=== PATIENT | male | born 2000 | race Caucasian/White ===

== ENCOUNTER 2023-12-11 19:21 | Emergency (ER) | payer OTHER, SELFPAY ==
[2023-12-11 19:33] VITALS: BP 132/71; PULSE 85; RESP 16; TEMP 37.4; O2SAT 100; BMI 22.2
--- NOTE | 2023-12-11 19:44 | ED.GENADULT ---
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 Has been taking Tylenol, Dayquil/Nyquil for symptom control. Nursing staff collected strep and triple viral swab on arrival. Patient also asked if labs for an iron level in ferritin would be covered here. He had stated that he had been seen by another doctor at a different time and his iron level was high but ferritin level was low. He was told by that physician he needed to see a specialist imminently. He wondered if tonight those labs could be done and covered under this ED visit. I reviewed with him that these labs certainly are not emergent or applicable to his ER visit. We also reviewed that any testing we do is still charge, the components of the workup are still individually charged. He does understand, does not want me to order these, reviewed with him that it really was not necessary as part of his workup at this point either. Related Data Previous Rx's Medication Instructions Recorded amoxicillin 875 mg-potassium 1 tab PO BID 10 days #19 tabs 12/11/23 clavulanate 125 mg tablet Allergies Allergy/AdvReac Type Severity Reaction Status Date / Time cat dander Allergy Unknown Verified 12/11/23 19:37 Review of Systems Narrative: As per HPI. Exam Const: Vital Signs, click to edit/add: Vital Signs - 24 hr 12/11/23 19:33 Temperature 99.3 F Pulse Rate [Pulse Oximeter] 85 Respiratory Rate 16 Blood Pressure [Ri ght Upper Arm] 132/71 Pulse Oximetry 100 Oxygen Delivery Me thod Room Air Patient is alert, interactive, no apparent distress. Cheeks are flushed but no rash. Sclera clear, pupils are equal and round. Oropharynx shows posterior erythema but good airway, has 2 small aphthous ulcers on the left tonsillar side. Tongue normal, no tonsillar enlargement or exudates but they are red appearing. Neck is suppple Documenting provider has reviewed patient's vital signs: yes Course Course ED Course: Reviewed with patient that we will await the strep and viral triple swab. Offered him ibuprofen but he declines at this point. Reevaluation(s) Time of Reevaluation #1: 20:35 Reevaluation #1: Reviewed with patient that his triple swab and strep DNA are negative. I have recommended that we proceed with a CBC and Monospot. He would like to do so. He thinks he may have had mono but still would like to proceed with the testing. We did review that if he is sure he has had mono, this usually confers lifelong immunity and it is rare for patients to get it a 2nd time. He would like to proceed with both test and they were subsequently ordered. Time of Reevaluation #2: 21:17 Reevaluation #2: Reviewed with patient the elevated white count which would point to bacterial pharyngitis. Monospot is negative. Will give dose of Augmentin here orally, 875 mg. There currently is no Augmentin in [facility]. Vital Signs Vital signs: Initial Vital Signs Temperature 99.3 F 12/11/23 19:33 Temperature Source Oral 12/11/23 19:33 Pulse Rate 85 12/11/23 19:33 Respiratory Rate 16 12/11/23 19:33 Blood Pressure 132/71 12/11/23 19:33 Blood Pressure Mean 91 12/11/23 19:33 Blood Pressure Position Sitting 12/11/23 19:33 Pulse Oximetry 100 12/11/23 19:33 Oxygen Delivery Method Room Air 12/11/23 19:33 Vital Signs Temperature 99.3 F 12/11/23 19:33 Pulse Rate 85 12/11/23 19:33 Respiratory Rate 16 12/11/23 19:33 Blood Pressure 132/71 12/11/23 19:33 Pulse Oximetry 100 12/11/23 19:33 Oxygen Delivery Method Room Air 12/11/23 19:33 Temperature 99.3 F 12/11/23 19:33 Pulse Rate 85 12/11/23 19:33 Respiratory Rate 16 12/11/23 19:33 Blood Pressure 132/71 12/11/23 19:33 Pulse Oximetry 100 12/11/23 19:33 Oxygen Delivery Method Room Air 12/11/23 19:33 Medical Decision Making Lab Data Lab results reviewed: Yes I reviewed the patient's lab results Labs: Lab Results 12/11/23 12/11/23 Range/Units 19:30 20:40 WBC 14.84 H (4.50-11.00) K/uL RBC 4.76 (4.30-5.90) m/uL Hgb 14.7 (13.5-17.5) gm/dL Hct 44.1 (37.0-53.0) % MCV 93 (80-100) fL MCH 31 (26-34) pg MCHC 33 (32-36) gm/dL RDW Coeff of Jozef 11.8 (11.5-15.5) % Plt Count 208 (140-440) K/uL Neut % (Auto) 69.7 (42.0-72.0) % Lymph % (Auto) 14.8 L (20-44) % [place] % (Auto) 14.4 H (0.0-11.0) % Eos % (Auto) 0.1 (0.0-7.0) % Baso % (Auto) 0.3 (0.0-3.0) % Neut # (Auto) 10.30 H (1.7-7.0) K/uL Lymph # (Auto) 2.20 (0.90-2.90) K/uL [place] # (Auto) 2.10 H (0.00-0.90) K/UL Eos # (Auto) 0.00 (0.00-0.50) K/uL Baso # (Auto) 0.00 (0.00-0.30) K/uL Abs Immat Gran (auto) 0.10 (0.00-0.30) K/uL Imm/Tot Granulo (auto) 0.7 % Diff Slide Review Acceptable Review (Acceptable) SARS-CoV-2 (PCR) Negative SARS-CoV-2 (Negative) Monoscreen Negative (Negative) Influenza Type A (PCR) Negative PCR FLU A (Negative) Influenza Type B (PCR) Negative PCR FLU B (Negative) RSV (PCR) Negative PCR RSV (Negative) Group A Strep DNA NOT DETECTED (Not Detectd) Discharge Plan Discharge Clinical Impression: Acute bacterial pharyngitis Patient Disposition: Home, Self-Care Condition: Stable Instructions: Pharyngitis (ED) Additional Instructions: Continue with antibiotics, next dose due tomorrow morning, take as prescribed. Can still take uwcu-ydz-axxocxy medicines as you have been for symptom control. Would recommend adding in ibuprofen and following bottle directions for dosing on this. You can alternate the Tylenol and ibuprofen for fever and pain control. If you are not improving over the next week, feel you are worsening at any point, develop worsening sore throat or sore throat the becomes severe on just 1 side of the throat, do need to be re-evaluated. Activity Level: No Restrictions and Activity as Tolerated Discharge Diet: Regular Prescriptions: New amoxicillin-pot clavulanate 875-125 mg tablet 1 tab PO BID 10 Days Qty: 19 0RF Follow Up/Referrals: Provider,Not a Local [Primary Care Provider] - Stand Alone Forms: [employer] Info Instructions
[2023-12-11 20:13] LABS: Strep A DNA Probe* NOT DETECTED (Not Detectd)
[2023-12-11 20:26] LABS: PCR FLU A Negative PCR FLU A (Negative); PCR FLU B Negative PCR FLU B (Negative); PCR RSV Negative PCR RSV (Negative); SARS PCR* Negative SARS-CoV-2 (Negative)
[2023-12-11 20:48] LABS: Basophils Percent Auto 0.3 % (0.0-3.0); Eosinophils Percent Auto 0.1 % (0.0-7.0); Hematocrit 44.1 % (37.0-53.0); Hemoglobin* 14.7 gm/dL (13.5-17.5); Immature Granulocytes Pct Auto 0.7 %; Lymphocytes Percent Auto 14.8 % (20-44); Mean Corpuscular HGB Conc 33 gm/dL (32-36); Mean Corpuscular Hemoglobin 31 pg (26-34); Mean Corpuscular Volume 93 fL (80-100); Monocytes Percent Auto 14.4 % (0.0-11.0); Neutrophils Percent Auto 69.7 % (42.0-72.0); Platelet Count* 208 K/uL (140-440); RDW Coefficient of Variation % 11.8 % (11.5-15.5); Red Blood Count 4.76 m/uL (4.30-5.90); White Blood Count* 14.84 K/uL (4.50-11.00)
[2023-12-11 21:09] LABS: Slide Review Reflex Yes
[2023-12-11 21:10] LABS: Slide Review Acceptable Review (Acceptable)
[2023-12-11 21:11] LABS: Mono Screen* Negative (Negative)
== END 2023-12-11 21:26 | disposition home or self-care (01) ==
PROVIDERS: Emergency Provider Family Medicine
DX: J02.9 Acute pharyngitis, unspecified (principal)
CPT/HCPCS: 36415; 85025; 86308; 87631; 87651; 99283; 99284

== ENCOUNTER 2024-02-15 19:43 | Emergency (ER) | payer OTHER, SELFPAY ==
[2024-02-15 19:49] VITALS: BP 124/69; PULSE 86; RESP 18; TEMP 36.7; O2SAT 99; BMI 23.1
--- NOTE | 2024-02-15 20:05 | ED_ITS ---
HPI - General Adult General Chief complaint: Extremity Pain/Injury, Upper Stated complaint: injured thumb/genitals Time Seen by Provider: 02/15/24 19:45 Source: patient Mode of arrival: ambulatory Limitations: no limitations History of Present Illness HPI narrative: 23-year-old male coming in today with 2 concerns. 1. He is concerned about a thumb injury. 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 Pain is located at the base of the thumb and does not radiate. Denies other injury. 2. Patient is concerned about discomfort at the frenulum of the penis. He states that about a year ago he had discomfort there in the neck got better and now he feels slightly uncomfortable again. He denies any redness, penile discharge. He denies any swelling of the penis. Is wo ndering if there is anything that he should be doing differently. Related Data Home Medications Medication Instructions Recorded Confirmed No Known Home Medications 02/15/24 02/15/24 Allergies Allergy/AdvReac Type Severity Reaction Status Date / Time cat dander Allergy Unknown Verified 02/15/24 19:51 Review of Systems Status of ROS: Reports: 6 or more systems reviewed and unremarkable except as noted in History and below Exam Narrative: Exam Narrative: Well-nourished well-developed patient in no acute distress. Alert and oriented. Answers questions appropriately. Mood and affect are appropriate. Thoughts are goal oriented and rational. No tangential or magical thinking noted. Patient speaks in full sentences without needing to catch his breath. Does not appear ill or toxic. HEENT: Normocephalic atraumatic. Pupils are equally round reactive to light. Extraocular muscles are intact. Conjunctivae are moist without any icterus noted. Moist mucous membranes. Extremities: Patient has mild swelling at the MCP joint of the thumb. That is where he has tenderness. He has full range of motion with flexion extension, adduction and abduction. He has no tenderness to palpation of the flange ease. He has no pain at the wrist up or in the snuffbox. : Normal external male genitalia. He is uncircumcised. He has a show slightly shortened frenulum that appears to be mildly irritated. It is not swollen, there is no evidence of infection, there is no penile discharge. The glans appears normal. Shaft of the penis is normal. Const: Vital Signs, click to edit/add: Vital Signs - 24 hr 02/15/24 19:49 Temperature 98.0 F Pulse Rate [Right Pulse Oximeter] 86 Respiratory Rate 18 Blood Pressure [Le ft Upper Arm] 124/69 Pulse Oximetry 99 Oxygen Delivery Me thod Room Air Course Vital Signs Vital signs: Initial Vital Signs Temperature 98.0 F 02/15/24 19:49 Temperature Source Temporal Artery Scan 02/15/24 19:49 Pulse Rate 86 02/15/24 19:49 Respiratory Rate 18 02/15/24 19:49 Blood Pressure 124/69 02/15/24 19:49 Blood Pressure Mean 87 02/15/24 19:49 Blood Pressure Position Sitting 02/15/24 19:49 Pulse Oximetry 99 02/15/24 19:49 Oxygen Delivery Method Room Air 02/15/24 19:49 Vital Signs Temperature 98.0 F 02/15/24 19:49 Pulse Rate 86 02/15/24 19:49 Respiratory Rate 18 02/15/24 19:49 Blood Pressure 124/69 02/15/24 19:49 Pulse Oximetry 99 02/15/24 19:49 Oxygen Delivery Method Room Air 02/15/24 19:49 Temperature 98.0 F 02/15/24 19:49 Pulse Rate 86 02/15/24 19:49 Respiratory Rate 18 02/15/24 19:49 Blood Pressure 124/69 02/15/24 19:49 Pulse Oximetry 99 02/15/24 19:49 Oxygen Delivery Method Room Air 02/15/24 19:49 Medical Decision Making MDM Narrative Medical decision making narrative: 23-year-old male with injury to the thumb. We discussed symptomatic treatment reasons for follow-up. Minimally shortened and slightly irritated frenulum of the penis. We discussed avoiding friction, appropriate hygiene and avoiding stretching of the foreskin. We discussed follow-up with urology if this becomes a recurrent problem. Discharge Plan Discharge Clinical Impression: Short frenulum of penis, Injury of thumb, left Patient Disposition: Home, Self-Care Condition: Stable Additional Instructions: Rest the thumb. Do gentle [id number] exercises like stretching out the thumb and making a fist multiple times per day to keep the joint mobile. Okay to take ibuprofen as needed for discomfort. Recommend not causing more injury to the thumb until it is fully healed which can take a few weeks. As far as the irritated frenulum of the penis, recommend avoiding any friction such as sexual activity or masturbation. Would recommend putting a small dot of antibiotic ointment on the area once daily for a few days . If this becomes a recurring problem, I would recommend following up with a urologist. Prescriptions: No Action No Known Home Medications Follow Up/Referrals: Provider,Not a Local [Primary Care Provider] - Stand Alone Forms: [employer] Info Instructions
[2024-02-15 20:11] VITALS: BP 124/69; PULSE 86; RESP 18; TEMP 36.7; O2SAT 99
[2024-02-15 20:23] VITALS: BP 124/69; PULSE 86; RESP 18; TEMP 36.7
== END 2024-02-15 20:23 | disposition home or self-care (01) ==
LOC: ED 20:22
PROVIDERS: Emergency Provider Family Medicine
DX: S69.92XA Unspecified injury of left wrist, hand and finger(s), initial encounter (principal); N48.9 Disorder of penis, unspecified; Y93.71 Activity, boxing
CPT/HCPCS: 99283

== ENCOUNTER 2024-10-16 15:02 | Outpatient (CLI) | payer OTHER, SELFPAY | END 2024-10-16 15:03 | disposition home or self-care (01) | PROVIDERS: PCP Family Medicine; Visit Provider Family Medicine | DX: K52.9 Noninfective gastroenteritis and colitis, unspecified (principal); R53.83 Other fatigue | CPT/HCPCS: 80053; 82306; 84443; 86140 ==

== ENCOUNTER 2025-10-03 15:40 | Emergency (ER) | payer OTHER, SELFPAY ==
[2025-10-03 15:53] VITALS: BP 129/78; PULSE 86; RESP 18; TEMP 36.9; O2SAT 97
--- OUTSIDE RECORDS SUMMARY | 2025-10-03 15:53 | XMS_ITS | Data Portability ---
Author Organization [facility], [facility] [facility]* Address [address] [place] [address] Assessment Encounter Date Assessment Date Assessment LastModified by Organization Details LastModified Time 02/10/2025 02/10/2025 Detailed discussion on diagnoses. 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 Will send letter template via portal. Letter pending further review of these records. Follow-up as needed. kriss Not available 02/10/2025 13:46:39 04/14/2025 04/14/2025 Fatigue and elevated calcium discussed. Labs ordered to further evaluate. Will follow-up with results and recommendations . Ganglion cyst of R wrist: discussed benign nature of lesion. Due to associated pain, ortho referral to discuss drainage/remova l. Follow-up as needed. Travel consult. Travel precautions thru CDC.gov reviewed with pt. Hep A #1 vaccine today. Typhoid vaccine script given. Pt informed that vaccines should have been completed several weeks prior to departure for effectiveness. Pt voiced understanding. Encouraged bringing ibuprofen otc prn fevers/discomfo rt. Sunscreen encouraged, Insect repellent. Water and food safety/hygiene reviewed. Nurse visit in 6 months for Hep A #2. [email or web address] Not available 04/14/2025 13:43:27 Plan of Treatment Reminders Order Date Submit Date Provider Last Modified By Organization Details Last Modified Time Details Appointments None record ed. Lab CT + NG RNA, PCR, unspec ified specim en 2024 025 [employer] [facility], [address] [facility], [place], [address], 5 14:31:19 RPR (rapid plasma reagin ), serum 2024 025 [employer] [facility], [address] [place] [address], [address], 5 14:31:20 HIV 1+2 Ab + HIV1 p24 Ag, quanti tative immuno assay, serum 2024 025 [facility], [address] [place] [address], [phone], 5 14:31:14 hepati tis C virus Ab, serum 2024 025 TERRIL [facility], [address] [place] [address], [address], 5 14:31:18 HBsAg (hepat itis B surfac e Ag), serum 2024 025 [employer] [facility], [address] [place] [address], [address], 5 14:31:17 lipid panel, serum 2024 025 [facility], [address] [place] [address], [address], 5 14:31:12 urinal ysis comple te, reflex cultur e 2024 025 [employer] [facility], [address] [place] [address], [address], 5 14:31:15 CMP, serum or plasma 2024 025 [employer] [facility], [address] [place] [address], [address], 5 06:32:20 CBC w/ auto diff 2024 025 [employer] [facility], [address] [place], [address], 5 06:32:21 vitami n D, 25-hyd sherice, total, serum 2024 025 [employer] [facility], [address] [place] [address], [address], 5 06:32:23 iron + TIBC + ferrit in, serum 2024 025 KEIRY [facility], [address] [place], [address], 5 06:32:19 TSH + free T4, serum 2024 025 TERRIL [facility], [facility] [place], [address], 5 06:32:20 vitami n B12, serum 2024 025 TERRIL [facility], [facility] [place], [address], 5 06:32:22 Referral hemato logist referr al 2024 025 [facility], [address] [place] [address] , [address], [place], [address], 5 04:30:49 orthop edic surgeo n referr al 2024 025 [facility] [place], [address] [facility] [address], [address], [place], [address], 5 05:40:11 psychi atrist referr al 2023 024 KEIRY Not available 5 05:11:48 Procedures None record ed. Surgeries None record ed. Imaging None record ed. Medication Orders cyanoc obalam in (vit B-12) 1,000 mcg/mL inject ion soluti on 2024 025 [email or web address] je Not available 18:33:56 Patient TargetsNo targets recorded. Patient Instructions Encounter Date Encounter Id Patient Instructions Last Modified By Organization Details Last Modified Time 04/14/2025 [id number] traveler's diarrhea: care instructions [email or web address] Not available 04/14/2025 13:33:28 Reason for Referral Psychiatrist Referral for Un able to concentrate Referring Physician: Tanisha Novak, Family Medicine, Encounter Date: 07/11/2024 Orthopedic Surgeon Referral for Ganglion cyst of right wrist Referring Physician: Ruchi Reyna [facility], Encounter Date: 04/14/2025 Referring Physician: Tanisha howard, [facility], Encounter Date: 05/13/2025 Results Created Date Observation Date Name Description Value Unit Range Abnormal Flag Note LastModifiedBy Organization Detail LastModifiedTime 04/14/2004/15/2025 IRON, TIBC AND CONSTANCE TIN PANEL iron, total 185 mcg/d L 50-195 normal Not Available [facility] [address] [place], [address], 04/15/2025 06:32:18 04/14/20 25 04/15/2025 IRON, TIBC AND CONSTANCE TIN PANEL iron binding capacity 275 mcg/d L_(ca lc) 250-42 5 normal Not Available [facility] [address] [place], [address], 04/15/2025 06:32:18 04/14/20 25 04/15/2025 IRON, TIBC AND CONSTANCE TIN PANEL % saturation 67 %_(ca lc) 20-48 high Not Available [facility] [address] [place], [address], 04/15/2025 06:32:18 04/14/20 25 04/15/2025 IRON, TIBC AND CONSTANCE TIN PANEL ferritin 65 NG/mL 38-380 normal Not Available [facility] [address] [place], [address], 04/15/2025 06:32:18 04/14/20 25 04/15/2025 TSH+F REE T4 TSH 1.07 mIU/L 0.40-4 .50 normal Not Available [facility] - [address] [place], [address], 04/15/2025 06:32:20 04/14/20 25 04/15/2025 TSH+F REE T4 T4, free 1.4 NG/dL 0.8-1. 8 normal Not Available [facility] - [address] [place], [address], 04/15/2025 06:32:20 04/14/20 25 04/15/2025 COMPR EHENS DAMARIS METAB OLIC PANEL glucose 83 mg/dL 65-139 normal Non-f astin g refer ence inter ida This amend ed repor t is issue d due to a previ ously repor kareem incor rect refer ence range on the origi nal repor t. There is no zaldivar e in the henny ing of the resul t. => Indic ates zaldivar ed resul t(s) or infor matio n. PLEAS E DISRE AYSE PREVI OUSLY REPOR KAREEM INFOR MATIO N BELOW : (The infor matio n below was origi mady repor kareem on 04/15 at 6:29 AM) GLUCO SE 83 Fasti ng refer ence inter ida Not Available [facility] - [address] [place], [address], 04/15/2025 14:10:18 04/14/20 25 04/15/2025 COMPR EHENS DAMARIS METAB OLIC PANEL urea nitrogen (BUN) 17 mg/dL 7-25 normal Not Available [facility] - [address] [place], [address], 04/15/2025 14:10:18 04/14/20 25 04/15/2025 COMPR EHENS DAMARIS METAB OLIC PANEL creatinine 0.88 mg/dL 0.60-1 .24 normal Not Available [facility] [address] [place], [address], 04/15/2025 14:10:18 04/14/20 25 04/15/2025 COMPR EHENS DAMARIS METAB OLIC PANEL eGFR 124 mL/mi n/1.7 3m2 > or = 60 normal Not Available [address] [place], [address], 04/15/2025 14:10:18 04/14/20 25 04/15/2025 COMPR EHENS DAMARIS METAB OLIC PANEL BUN/creatini ne ratio SEE NOTE: (calc ) 6-22 Not Repor kareem: BUN and Creat inine are withi n refer ence range . Not Available [address] [place], [address], 04/15/2025 14:10:18 04/14/20 25 04/15/2025 COMPR EHENS DAMARIS METAB OLIC PANEL sodium 139 mmol/ L 135-14 6 normal Not Available [address] [place], [address], 04/15/2025 14:10:18 04/14/20 25 04/15/2025 COMPR EHENS DAMARIS METAB OLIC PANEL potassium 4.1 mmol/ L 3.5-5. 3 normal Not Available [address] [place], [address], 04/15/2025 14:10:18 04/14/20 25 04/15/2025 COMPR EHENS DAMARIS METAB OLIC PANEL chloride 103 mmol/ L 98-110 normal Not Available [address] [place], [address], 04/15/2025 14:10:18 04/14/20 25 04/15/2025 COMPR EHENS DAMARIS METAB OLIC PANEL carbon dioxide 30 mmol/ L 20-32 normal Not Available [address] [place], [address], 04/15/2025 14:10:18 04/14/20 25 04/15/2025 COMPR EHENS DAMARIS METAB OLIC PANEL calcium 9.8 mg/dL 8.6-10 .3 normal Not Available [address] [place], [address], 04/15/2025 14:10:18 04/14/20 25 04/15/2025 COMPR EHENS DAMARIS METAB OLIC PANEL protein, total 7.4 g/dL 6.1-8. 1 normal Not Available [address] [place], [address], 04/15/2025 14:10:18 04/14/20 25 04/15/2025 COMPR EHENS DAMARIS METAB OLIC PANEL albumin 4.9 g/dL 3.6-5. 1 normal Not Available [address] [place], [address], 04/15/2025 14:10:18 04/14/20 25 04/15/2025 COMPR EHENS DAMARIS METAB OLIC PANEL globulin 2.5 g/dL_ (calc ) 1.9-3. 7 normal Not Available [address] [place], [address], 04/15/2025 14:10:18 04/14/20 25 04/15/2025 COMPR EHENS DAMARIS METAB OLIC PANEL albumin/glob ulin ratio 2.0 (calc ) 1.0-2. 5 normal Not Available [address] [place], [address], 04/15/2025 14:10:18 04/14/20 25 04/15/2025 COMPR EHENS DAMARIS METAB OLIC PANEL bilirubin, total 0.7 mg/dL 0.2-1. 2 normal Not Available [address] [place], [address], 04/15/2025 14:10:18 04/14/20 25 04/15/2025 COMPR EHENS DAMARIS METAB OLIC PANEL alkaline phosphatase 58 U/L 36-130 normal Not Available [address] [place], [address], 04/15/2025 14:10:18 04/14/20 25 04/15/2025 COMPR EHENS DAMARIS METAB OLIC PANEL AST 21 U/L 10-40 normal Not Available [address] [place], [address], 04/15/2025 14:10:18 04/14/20 25 04/15/2025 COMPR EHENS DAMARIS METAB OLIC PANEL ALT 18 U/L 9-46 normal Not Available [address] [place], [address], 04/15/2025 14:10:18 04/14/20 25 04/15/2025 CBC (INCL UDES DIFF/ PLT) white blood cell count 6.3 thous and/u L 3.8-10 .8 normal Not Available [address] [place], [address], 04/15/2025 06:32:21 04/14/20 25 04/15/2025 CBC (INCL UDES DIFF/ PLT) red blood cell count 4.56 arnoldo on/uL 4.20-5 .80 normal Not Available [address] [place], [address], 04/15/2025 06:32:21 04/14/20 25 04/15/2025 CBC (INCL UDES DIFF/ PLT) hemoglobin 14.4 g/dL 13.2-1 7.1 normal Not Available [address] [place], [address], 04/15/2025 06:32:21 04/14/20 25 04/15/2025 CBC (INCL UDES DIFF/ PLT) hematocrit 43.7 % 38.5-5 0.0 normal Not Available [facility] [address] [place], [address], 04/15/2025 06:32:21 04/14/20 25 04/15/2025 CBC (INCL UDES DIFF/ PLT) MCV 95.8 fL 80.0-1 00.0 normal Not Available [facility] [address] [place], [address], 04/15/2025 06:32:21 04/14/20 25 04/15/2025 CBC (INCL UDES DIFF/ PLT) MCH 31.6 pg 27.0-3 3.0 normal Not Available [facility] [address] [place], [address], 04/15/2025 06:32:21 04/14/20 25 04/15/2025 CBC (INCL UDES DIFF/ PLT) MCHC 33.0 g/dL 32.0-3 6.0 normal For adult s, a sligh t decre ase in the calcu lated MCHC value (in the range of 30 to 32 g/dL) is most likel y not clini mau signi fican t; claudetteev er, it shoul d be inter prete d with cauti on in corre lat n with other red cell christopher eters and the patie nt's clini dax condi tion. Not Available [address] [place], [address], 04/15/2025 06:32:21 04/14/20 25 04/15/2025 CBC (INCL UDES DIFF/ PLT) RDW 11.8 % 11.0-1 5.0 normal Not Available [facility] [address] [place], [address], 04/15/2025 06:32:21 04/14/20 25 04/15/2025 CBC (INCL UDES DIFF/ PLT) platelet count 195 thous and/u L 140-40 0 normal Not Available [facility] [address] [place], [address], 04/15/2025 06:32:21 04/14/20 25 04/15/2025 CBC (INCL UDES DIFF/ PLT) MPV 11.5 fL 7.5-12 .5 normal Not Available [facility] - [address] [place], [address], 04/15/2025 06:32:21 04/14/20 25 04/15/2025 CBC (INCL UDES DIFF/ PLT) absolute neutrophils 3175 cells /uL 1500-7 800 normal Not Available [facility] - [address] [place], [address], 04/15/2025 06:32:21 04/14/20 25 04/15/2025 CBC (INCL UDES DIFF/ PLT) absolute lymphocytes 2356 cells /uL 850-39 00 normal Not Available [facility] - [address] [place], [address], 04/15/2025 06:32:21 04/14/20 25 04/15/2025 CBC (INCL UDES DIFF/ PLT) absolute monocytes 498 cells /uL 200-95 0 normal Not Available [facility] [address] [place], [address], 04/15/2025 06:32:21 04/14/20 25 04/15/2025 CBC (INCL UDES DIFF/ PLT) absolute eosinophils 208 cells /uL 15-500 normal Not Available [facility] - [address] [place], [address], 04/15/2025 06:32:21 04/14/20 25 04/15/2025 CBC (INCL UDES DIFF/ PLT) absolute basophils 63 cells /uL 0-200 normal Not Available [facility] [address] [place], [address], 04/15/2025 06:32:21 04/14/20 25 04/15/2025 CBC (INCL UDES DIFF/ PLT) neutrophils 50.4 % normal Not Available [facility] [address] [place], [address], 04/15/2025 06:32:21 04/14/20 25 04/15/2025 CBC (INCL UDES DIFF/ PLT) lymphocytes 37.4 % normal Not Available [facility] [address] [place], [address], 04/15/2025 06:32:21 04/14/20 25 04/15/2025 CBC (INCL UDES DIFF/ PLT) monocytes 7.9 % normal Not Available [facility] [address] [place], [address], 04/15/2025 06:32:21 04/14/20 25 04/15/2025 CBC (INCL UDES DIFF/ PLT) eosinophils 3.3 % normal Not Available [facility] [address] [place], [address], 04/15/2025 06:32:21 04/14/20 25 04/15/2025 CBC (INCL UDES DIFF/ PLT) basophils 1.0 % normal Not Available [facility] [address] [place], [address], 04/15/2025 06:32:21 04/14/20 25 04/15/2025 VITAM IN B12 vitamin B12 315 pg/mL 200-11 00 normal Pleas e Note: Altho ugh the refer ence range for vitam in B12 is 200-1 100 pg/mL , it has been repor kareem that betwe en 5 and 10% of patie nts with value s betwe en 200 and 400 pg/mL may exper ience neuro psych iatri c and hemat ologi c abnor malit ies due to occul t B12 defic iency ; less than 1% of patie nts with value s above 400 pg/mL will have sympt oms. Not Available [facility] [address] [place], [address], 04/15/2025 06:32:22 04/14/20 25 04/15/2025 VITAM IN D,25- OH,TO LUIS,I A vitamin D,25-oh,tota l,ia 41 NG/mL 30-100 normal Vitam in D Statu s 25-OH Vitam in D: Defic iency : <20 ng/mL Insuf ficie ncy: 20 - 29 ng/mL Optim al: > or = 30 ng/mL For 25-OH Vitam in D testi ng on patie nts on D2-anders pplem entat ion and patie nts for whom quant itati on of D2 and D3 fract ions is requi red, the [facility] e[facility](TM ) 25-OH VIT D, (D2,D 3), LC/MS /MS is recom denny d: order code 08511 (yo ents >2yrs ). See Note 1 Note 1 For addit ional infor jamal hernandez refer to http: //[facility] thad barbosa.Pool [place] gnost ics.c om/fa q/FAQ 199 (This link is being provi ded for infor hailey sarmiento/ educmikayla martin purpo ses only. ) Not Available [facility] [address] [place], [address], 04/15/2025 06:32:23 05/18/20 25 05/19/2025 LIPID PANEL , STAND GEOVANNA cholesterol, total 167 mg/dL <200 normal Not Available [facility] [address] [place], [address], 05/19/2025 14:31:12 05/18/20 25 05/19/2025 LIPID PANEL , STAND GEOVANNA HDL cholesterol 73 mg/dL > or = 40 normal Not Available [facility] [address] [place], [address], 05/19/2025 14:31:12 05/18/20 25 05/19/2025 LIPID PANEL , STAND GEOVANNA triglyceride s 76 mg/dL <150 normal Not Available [facility] [address] [place], [address], 05/19/2025 14:31:12 05/18/20 25 05/19/2025 LIPID PANEL , STAND GEOVANNA LDL-choleste rol 78 mg/dL _(dax c) normal Refer ence range : <100 Bharath able range <100 mg/dL for prima ry preve ntion ; <70 mg/dL for patie nts with CHD or diabe tic patie nts with > or = 2 CHD risk facto rs. LDL-C is now calcu lated using the Lila n-Hop kins calcu latmiguelito n, which is a valid ated novel metho d provi ding poli r accur acy than the Fried kathleen equat ion in the estim ation of LDL-C . Lila barbosa SS et al. LESLIE. 2013; 310(1 9): 2061- 206 (http ://ed ucati on.Qu [employer]. com/f aq/FA Q164) Not Available [facility] [place], [address], 05/19/2025 14:31:12 05/18/20 25 05/19/2025 LIPID PANEL , STAND GEOVANNA chol/HDLC ratio 2.3 (calc ) <5.0 normal Not Available [facility] [place] [place], [address], 05/19/2025 14:31:12 05/18/20 25 05/19/2025 LIPID PANEL , STAND GEOVANNA non HDL cholesterol 94 mg/dL _(dax c) <130 normal For patie nts with diabe sandeep plus 1 major ASCVD risk facto r, treat ing to a non-H DL-C goal of <100 mg/dL (LDL- C of <70 mg/dL ) is consi dered a thera peuti c optio n. Not Available [facility], [address], 05/19/2025 14:31:12 05/18/20 25 05/19/2025 HIV 1/2 ANTIG EN/AN TIBOD Y,FOU RTH GENER ATION W/RFL HIV final interpretati on HIV Negat damaris HIV-1 antig en and HIV-1 /HIV- 2 antib odies were not detec kareem. There is no labor atory evide nce of HIV infec tion. Not Available [facility] - [address] [place], [address], 05/19/2025 14:31:14 05/18/20 25 05/19/2025 HIV 1/2 ANTIG EN/AN TIBOD Y,FOU RTH GENER ATION W/RFL HIV Ag/Ab, 4TH gen NON-RE ACTIVE non-re active normal Not Available [facility] - [address] [place], [address], 05/19/2025 14:31:14 05/18/20 25 05/19/2025 URINA LYSIS , COMPL ETE W/REF SPENCER TO CULTU RE color YELLOW yellow normal Not Available [facility] - [address] [place], [address], 05/19/2025 14:31:15 05/18/20 25 05/19/2025 URINA LYSIS , COMPL ETE W/REF SPENCER TO CULTU RE appearance CLEAR clear normal Not Available [facility] - [address] [place], [address], 05/19/2025 14:31:15 05/18/20 25 05/19/2025 URINA LYSIS , COMPL ETE W/REF SPENCER TO CULTU RE specific gravity 1.016 1.001- 1.035 normal Not Available [facility] [address] [place], [address], 05/19/2025 14:31:15 05/18/20 25 05/19/2025 URINA LYSIS , COMPL ETE W/REF SPENCER TO CULTU RE pH 6.0 5.0-8. 0 normal Not Available [facility] [address] [place], [address], 05/19/2025 14:31:15 05/18/20 25 05/19/2025 URINA LYSIS , COMPL ETE W/REF SPENCER TO CULTU RE glucose NEGATI VE negati ve normal Not Available [facility] [address] [place], [address], 05/19/2025 14:31:15 05/18/20 25 05/19/2025 URINA LYSIS , COMPL ETE W/REF SPENCER TO CULTU RE bilirubin NEGATI VE negati ve normal Not Available [facility] - [address] [place], [address], 05/19/2025 14:31:15 05/18/20 25 05/19/2025 URINA LYSIS , COMPL ETE W/REF SPENCER TO CULTU RE ketones NEGATI VE negati ve normal Not Available [facility] - [address] [place], [address], 05/19/2025 14:31:15 05/18/20 25 05/19/2025 URINA LYSIS , COMPL ETE W/REF SPENCER TO CULTU RE occult blood NEGATI VE negati ve normal Not Available [facility] - [address] [place], [address], 05/19/2025 14:31:15 05/18/20 25 05/19/2025 URINA LYSIS , COMPL ETE W/REF SPENCER TO CULTU RE protein NEGATI VE negati ve normal Not Available [facility] - [address] [place], [address], 05/19/2025 14:31:15 05/18/20 25 05/19/2025 URINA LYSIS , COMPL ETE W/REF SPENCER TO CULTU RE nitrite NEGATI VE negati ve normal Not Available [facility] - [address] [place], [address], 05/19/2025 14:31:15 05/18/20 25 05/19/2025 URINA LYSIS , COMPL ETE W/REF SPENCER TO CULTU RE leukocyte esterase NEGATI VE negati ve normal Not Available [facility] - [address] [place], [address], 05/19/2025 14:31:15 05/18/20 25 05/19/2025 URINA LYSIS , COMPL ETE W/REF SPENCER TO CULTU RE WBC NONE SEEN /hpf < or = 5 normal Not Available [facility] [address] [place], [address], 05/19/2025 14:31:15 05/18/20 25 05/19/2025 URINA LYSIS , COMPL ETE W/REF SPENCER TO CULTU RE RBC NONE SEEN /hpf < or = 2 normal Not Available [address] [place], [address], 05/19/2025 14:31:15 05/18/20 25 05/19/2025 URINA LYSIS , COMPL ETE W/REF SPENCER TO CULTU RE squamous epithelial cells NONE SEEN /hpf < or = 5 normal Not Available [address] [place], [address], 05/19/2025 14:31:15 05/18/20 25 05/19/2025 URINA LYSIS , COMPL ETE W/REF SPENCER TO CULTU RE bacteria NONE SEEN /hpf none seen normal Not Available [address] [place], [address], 05/19/2025 14:31:15 05/18/20 25 05/19/2025 URINA LYSIS , COMPL ETE W/REF SPENCER TO CULTU RE hyaline cast NONE SEEN /lpf none seen normal Not Available [address] [place], [address], 05/19/2025 14:31:15 05/18/20 25 05/19/2025 URINA LYSIS , COMPL ETE W/REF SPENCER TO CULTU RE note This urine was wilfrid zed for the prese nce of WBC, RBC, bacte joana, casts , and other forme d eleme nts. Only those eleme nts seen were repor kareem. Not Available [address] [place], [address], 05/19/2025 14:31:15 05/18/20 25 05/19/2025 REFLE XIVE URINE CULTU RE reflexive urine culture NO CULTU RE INDIC ATED Not Available [facility] [address] [place], [address], 05/19/2025 14:31:16 05/18/2005/19/2025 HEPAT ITIS B SURFA CE ANTIG EN W/REF L CONFI RM hepatitis B surface antigen NON-RE ACTIVE non-re active normal For addit ional infor matio n, jamal e refer to http: //[facility] catmiguelito n.que stdia gnost ics.c om/fa q/FAQ 202 (This link is being provi ded for infor matio nal/ educa libby l purpo ses only. ) Not Available [facility] - [address] [place], [address], 05/19/2025 14:31:17 05/18/20 25 05/19/2025 HEPAT ITIS C AB W/REF L TO HCV RNA, QN, PCR hepatitis C antibody NON-RE ACTIVE non-re active normal HCV antib dread was non-r eacti ve. There is no labor atory evide nce of HCV infec tion. In most cases , no furth er actio n is requi red. Howev er, if recen t HCV expos ure is suspe cted, a test for HCV RNA (test code 53226 ) is sugge sted. For addit ional infor matio n jamal e refer to http: //[facility] thad n.pool stdia gnost ics.c om/fa q/FAQ 22v1 (This link is being provi ded for infor matio nal/ educa libby l purpo ses only. ) Not Available [facility] - [address] [place], [address], 05/19/2025 14:31:18 05/18/2005/19/2025 CHLAM YDIA/ N. GONOR RHOEA E RNA, TMA, UROGE NITAL chlamydia trachomatis RNA, tma, urogenital NOT DETECT ED not detect ed normal Not Available [facility] - [address] [place], [address], 05/19/2025 14:31:19 05/18/20 25 05/19/2025 CHLAM YDIA/ N. GONOR RHOEA E RNA, TMA, UROGE NITAL neisseria gonorrhoeae RNA, tma, urogenital NOT DETECT ED not detect ed normal Not Available [facility] [address] [place], [address], 05/19/2025 14:31:19 05/18/20 25 05/19/2025 CHLAM YDIA/ N. GONOR RHOEA E RNA, TMA, UROGE NITAL comment The wilfrid tical perfo rmanc e bozena cteri stics of this assay , when used to test SureP ath(T M) speci mens have been deter mined by [employer] o[employer] s. The modif icati ons have not been clear ed or appro rosario by the FDA. This assay has been valid ated pursu ant to the CLIA regul ation s and is used for clini dax purpo ses. For addit ional infor jamal hernandez e refer to https ://ed ucati on.qu estdi [employer]. com/f aq/FA Q154 (This link is being provi ded for infor hailey barbosa/ educmikayla souza l purpo ses only. ) Not Available [facility] [address] [place], [id number], 05/19/2025 14:31:19 05/18/20 25 05/19/2025 RPR (DX) W/REF L TITER AND T. PALLI DUM AB, IA RPR (DX) w/refl titer and confirmatory testing NON-RE ACTIVE non-re active normal No labor atory evide nce of syphi lis. If recen t expos ure is suspe cted, submi t a new sampl e in 2-4 weeks . Not Available [facility] [address] [place], [id number], 05/19/2025 14:31:20 Result Notes None recorded. Medical Equipment None Reported. Allergies Allergen ID Allergen Name Allergen Category Reaction Reaction Severity Criticality Documentation Date Start Date Code Code System Note Provider Name and Address Organization Details Recorded Time [id number] latex environme nt,medica tion Not available Not available Not available 04/14/2025 05047 91 RxNorm Echo mena, [facility] 13:08:26 Medications Name Sig Start Date Stop Date Status Note LastModified by Organization Details LastModified Time methylpheni date ER 54 mg tablet,exte nded release 24 hr TAKE 1 TABLET BY MOUTH EVERY DAY active Not Available Not Available No t Available cyanocobala min (vit B-12) 1,000 mcg/mL injection solution Inject 1 mL every month by subcutane ous route. 2024 active Not Available Not Available Not Avai lable amoxicillin 875 mg-potassiu m clavulanate 125 mg tablet TAKE 1 TABLET BY MOUTH TWICE DAILY FOR 10 DAYS 02/10 completed Not Available Not Available Not Available azithromyci n 500 mg tablet TAKE 1 TABLET BY MOUTH EVERY DAY FOR 3 DAYS 02/10 completed Not Available Not Available Not Available Vitals Date Recorded Body height Body mass index (BMI) Body weight Body temperature Heart rate Oxygen saturation Systolic And Diastolic Provider Name and Address Organization Details Last Updated DateTime 187.96 cm 22.7 kg/m2 73868.8 5 g 98 [degF] 85 /min 99 % 119/70 mm[Hg] Etta Cherry [facility] 13:23:15 Date Recorded Body mass index (BMI) Provider Name and Address Organization Details Last Updated DateTime 04/14/2025 22.3 kg/m2 RITA Valerio [address], [place], [address], [facility] 04/14/2025 13:47:21 Date Recorded Body height Body weight Heart rate Oxygen saturation Body temperature Systolic And Diastolic Provider Name and Address Organization Details Last Updated DateTime 5 187.96 cm 46877.3 5 g 78 /min 99 % 98 [degF] 110/74 mm[Hg] Echo Ust i [facility] 13:05:24 Date Recorded Body height Body mass index (BMI) Body weight Body temperature Pain severity - 0-10 verbal numeric rating [Score] - Reported Oxygen saturation Heart rate Systolic And Diastolic Provider Name and Address Organization Details Last Updated DateTime 5 187.96 cm 22.6 kg/m2 87767.6 6 g 98.4 [degF] 0 97 % 79 /min 112/78 mm[Hg] Eva Hairston [facility] 5 17:34:46 Date Recorded Body height Provider Name an d Address Organization Details Last Updated DateTime 05/18/2025 187.96 cm Chema Becker [facility] 05/18/2025 18:08:18 Date Recorded Body height Body mass index (BMI) Body weight Heart rate Oxygen saturation Body temperature Systolic And Diastolic Provider Name and Address Organization Details Last Updated DateTime 4 187.96 cm 23.5 kg/m2 86173.4 g 82 /min 98 % 98.4 [degF] 108/70 mm[Hg] Innadalilakrishna Malinjesse [facility] 4 10:53:43 Social History Question Answer Notes LastModified by Organizat iClinical Details LastModified Time Tobacco Sm[facility] Status [facility] 07/11/2024 10:54:39 What Was The Date Of Your Most Recent Tobacco Screening? 05/13/2025 erudiak Information not available 05/13/2025 Sex: Male Functional Status Question Answer Note LastModified by Organizat iClinical Details LastModified Time Do you use any illicit or recreational drugs? No Information not available 06/29/2023 What is your level of alcohol consumption? Occasional Information not available 06/29/2023 What is your exercise level? Moderate Information not available 06/29/2023 Mental Status None recorded. Family History Relationship Description Onset Age of this Age Resolved Age Notes LastModified by Organization Details LastModified Time Father Alcoholism erudiak Not availabl e 05/13/2025 17:43:40 Father Nicotine dependence erudiak Not available 05/13 17:43:51 Father Anxiety erudiak Not available 0 05/13/2025 17:43:58 Medical History No medical history recorded. Immunizations Vaccine Type Date Status Note Provider Nam e and Address Organization Details Recorded Time Hep A, adult 5 completed Echo Pasupuleti null, [facility] 04/14/2025 13:44:50 Influenza, split virus, quadrivalent, preservative 2 completed Echo Pasupuleti null, [facility] 06/27/2023 15:52:00 Hib, unspecified formulation 2 completed Echo Pasupuleti null, [facility] 06/27/2023 15:52:00 Hib, unspecified formulation 3 completed Echo Pasupuleti null, [facility] 06/27/2023 15:52:00 Hib, unspecified formulation 2 completed Echo Pasupuleti null, [facility] 06/27/2023 15:52:00 Hib, unspecified formulation 2 completed Echo Pasupuleti null, [facility] 06/27/2023 15:52:00 meningococcal B, recombinant 9 completed Echo Pasupuleti null, [facility] 06/27/2023 15:52:00 meningococcal B, recombinant 2 completed Echo Pasupuleti null, [facility] 06/27/2023 15:52:00 HPV9 9 completed Echo Pasupuleti null, [facility] 06/27/2023 15:52:00 HPV9 2 completed Echo Pasupuleti null, [facility] 06/27/2023 15:52:00 Influenza, MDCK, quadrivalent, preservative 8 completed Echo Pasupuleti null, [facility] 06/27/2023 15:52:00 MMR 7 completed Echo Pasupuleti null, [facility] 06/27/2023 15:52:00 MMR 3 completed Echo Pasupuleti null, [facility] 06/27/2023 15:52:00 COVID-19, mRNA, LNP-S, PF, 30 mcg/0.3 mL dose 1 completed Echo Pasupuleti null, [facility] 06/27/2023 15:52:00 COVID-19, mRNA, LNP-S, PF, 30 mcg/0.3 mL dose 1 completed Echo Pasupuleti null, [facility] 06/27/2023 15:52:01 influenza, unspecified formulation 8 completed Echo Pasupuleti null, [facility] 06/27/2023 15:52:01 influenza, unspecified formulation 7 completed Echo Pasupuleti null, [facility] 06/27/2023 15:52:01 Tdap 4 completed Echo Pasupuleti null, [facility] 06/27/2023 15:52:01 varicella 3 completed Echo Pasupuleti null, [facility] 06/27/2023 15:52:01 varicella 7 completed Echo Pasupuleti null, [facility] 06/27/2023 15:52:01 DTP 4 completed Echo Pasupuleti null, [facility] 06/27/2023 15:52:01 DTP 7 completed Echo Pasupuleti null, [facility] 06/27/2023 15:52:01 DTP 2 completed Echo Pasupuleti null, [facility] 06/27/2023 15:52:01 DTP 2 completed Echo Pasupuleti null, [facility] 06/27/2023 15:52:01 DTP 2 completed Echo Pasupuleti null, [facility] 06/27/2023 15:52:01 Hep B, unspecified formulation 4 completed Echo Pasupuleti null, [facility] 06/27/2023 15:52:01 Hep B, unspecified formulation 2 completed Echo Pasupuleti null, [facility] 06/27/2023 15:52:01 Hep B, unspecified formulation 2 completed Echo Pasupuleti null, [facility] 06/27/2023 15:52:01 pneumococcal, unspecified formulation 2 completed Echo Pasupuleti null, [facility] 06/27/2023 15:52:01 pneumococcal, unspecified formulation 2 completed Echo Pasupuleti null, [facility] 06/27/2023 15:52:01 pneumococcal, unspecified formulation 2 completed Echo Pasupuleti null, [facility] 06/27/2023 15:52:01 polio, unspecified formulation 4 completed Echo Pasupuleti null, [facility] 06/27/2023 15:52:01 polio, unspecified formulation 6 completed Echo Pasupuleti null, [facility] 06/27/2023 15:52:01 polio, unspecified formulation 8 completed Ceho Pasupuleti null, [facility] 06/27/2023 15:52:01 polio, unspecified formulation 2 completed Echo Pasupuleti null, [facility] 06/27/2023 15:52:01 Influenza, split virus, trivalent, preservative 4 completed Echo Pasupuleti null, [facility] 06/27/2023 15:52:01 Influenza, split virus, trivalent, PF 7 completed Echo Pasupuleti null, [facility] 06/27/2023 15:52:01 meningococcal MCV4P 9 completed Echo Pasupuleti null, [facility] 06/27/2023 15:52:01 Influenza, split virus, quadrivalent, PF 6 completed Echo Pasupuleti null, [facility] 06/27/2023 15:52:01 Influenza, split virus, quadrivalent, PF 1 completed Echo Pasupuleti null, [facility] 06/27/2023 15:52:01 Tdap 4 completed HYACINTH Contreras [address], [place], [address], [facility] 05/13/2025 18:35:39 Influenza, split virus, trivalent, PF 4 completed HYACINTH Contreras [address], [place], [address], [facility] 05/13/2025 18:35:39 Past Encounters Encounter ID Performer Location Encounter Start Date Encounter Closed Date Diagnosis/Indication Diagnosis SNOMED-CT Code Diagnosis ICD10 Code Diagnosis IMO Codes Diagnosis Note [id number] Joel Irby MD [facility] [address] [place] [address],[facility] [address] [place] [address] 06/29/2023 11:48:14 06/29/2023 12:39:38 Vitamin D deficiency 55618039 E55.9 Per patient report, pt has hx of vitamin D deficiency and is requesting a vitamin D level be performed today Fatigue 18288633 R53.83 -pt feeling fatigued and requesting iron panel be drawn-will also draw TSH and CBC (r/o anemia) Adult [facility] th examination 551040853 Z00.00 Continue with healthy diet and exercise at least 150 minutes a week. Venereal d isease screening 410471116 Z11.3 -per patient request [id number] Joel Irby MD [facility] [address] [place] [address],[address] [place] [address] 07/09/2023 15:32:51 07/09/2023 16:01:04 Test result to patient personally 204006258 Z71.2 All results have been discussed wt patient Serum iron above reference range 248205157 R79.0 -pt to see hematology regarding iron panel results Hypercalcemia 50838061 E 83.52 -will test PTH and repeat calcium level [id number] Joel Irby MD [facility] [address] [place] [address],[address] [place] [address] 07/11/2024 10:37:08 07/11/2024 11:20:41 Unable to concentrate 07886253 R41.840 Patient last filled stimulant in 2021 upon review of the AUTOMOTIVE SERVICE TECHNICIAN. Pt reports that this was only because [place] the year. He does not have any documentat ion of a prior ADHD diagnosis from psychiatry . Pt was made aware of our policy regarding stimulants and ADHD. Pt needs to either complete a brain scan which shows ADHD or undergo neuro-psyc h testing with psychiatry .Pt reports that he is going to college in 4 days and does not have time to complete either. I have offered a referral to psychiatry so patient can get neuropsych testing completed. Pt is in agreement with this plan and verbalized understand ing. Referral to psychiatry given today for further evaluation and treatment. Active or passive immunization 596544347 Z23 Due for Tdap as wellAdmini stered flu shotTolera kareem well. 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 82538452 Attention deficit hyperactivity disorder 094204586 F90.9 530111678 [id number] Alie Hua MD [facility] [address] [place] [address],[address] [place] [address] 04/14/2025 12:52:24 04/14/2025 17:14:15 Fatigue 50077496 R53.83 73255028 Hypercalcemia 14064586 E 83.52 86126 Ganglion c yst of right wrist 3966704338 08268 M67.333 0395051 Active immunization 3387 9002 Z23 34395558 Counseling 020865261 Z71 .84 [id number] Joel Irby MD [facility] [address] [place] [address],[address] [place] [address] 05/13/2025 17:26:49 05/13/2025 19:06:08 Adult health examination 370017398 Z00.00 253391 -Check labs today-Disc ussed diet and exercise in detail-Hea lthy diet, increase lean protein (such as chicken, fish and turkey)-In crease fruits and vegetables , whole grains and legumes-Ex ercise at least 150 minutes a week, which can be broken into 30 minutes five days a week-Reduc e amount of processed foods, red meat and alcohol in diet-Yearl y eye exams-Q6 months dental exams-slee p at least 8 hours nightly-UT D on vaccinatio ns Venereal d isease screening 371646236 Z11.3 9877714 - Asymptomat ic. Finding of abnormal level of heavy metals in blood 425556251 R79.0 [id number] - Hematologi st referral given per patient request. [id number] Joel Irby MD PMG_VFM_F [facility] Office* [address] [place] [address] 05/18/2025 18:03:10 05/18/2025 18:13:51 Cobalamin deficiency 058913005 E53.8 61594 Health Concerns Section Related Observation LastModified by Organization Detai ls LastModified Time None Recorded Concern Status LastModified by Organization Details LastModified Time None Recorded Advance Directives Directive None Recorded Payers Insurance Date Sequence Insurance Name Policy Number Policy Ahmadi Covered Member ID Ahmadi Member ID Guarantor Name 05/22/2025 1 [facility] [id number] [facility] 06/29/[address] [facility] [id number] [facility] Notes Date Note Type Note Provider Name and Address Organization Details Recorded Time 07/11/2024 text/html 24 y/o M here for vaccines and ADHD medication refill. Pt has taken methylphenidate 54 mg ER in the past and looking for a refill today. He does not have any documentation with him today regarding prior ADHD diagnosis. Pt c/o inability to concentrate.He is also looking for a flu shot. No other concerns. Tanisha Novak, SALMON TROLL FISHER [address], [place], [address], [facility] - [employer] 07/11/2024 14:21:10 02/10/2025 text/html ROS as noted in the HPI 24 yo M presents today with mother to request doctor's note.Mother and patient reports PMH of ADHD and visual snow syndrome.States that he was dx with ADHD as a child and visual snow syndrome more recently after he was experiencing vision issues, was seen by manager park near his college, and then referred to [facility] due to suspicion that vision issues may be due to head trauma from boxing. Mother states that series of tests were done at [facility] to properly dx visual snow syndrome.Due to stress of the diagnosis process and ADHD as well as stress related to this, pt missed a deadline with his [employer] tuition application and requires a letter stating that he has these diagnoses.Pt is also open to getting established with psychological operations officer to better manage stress.No other issues or concerns. [address], [place], [address], [facility] [employer] [facility] 02/10/2025 13:47:46 04/14/2025 text/html ROS as noted in the HPI 25 yo M presents today for travel consult, f/u fatigue, and cc of mass on R wrist. Patient presents for follow-up travel consult.Traveling to [facility] for 4 weeks, from 04/15/2025 through the end of April 2025.Requests vaccines to be updated as indicated.Presents for Hepatitis A vaccine and any vaccines that are recommended. Patient also presents for fatigue.Has hx of vitamin B12 deficiency, vitamin D deficiency, elevated calcium, and abnormal iron panel results.Has ongoing visual snow syndrome.Presents for repeat labs. Patient presents for bump located on lateral aspect of inner right wrist x4 years.Reports intermittent pain.States bump has not changed in size since onset.Has not had imaging done.Presents for further evaluation.No other issues or concerns. [address], [place], [address], [facility] [employer] [facility] 04/14/2025 13:50:41 05/13/2025 text/html Annual Wellness Visit - MaleReported by PatientWellness HistoryFor wellness history, patient reportsdoes not use sunscreen/protection but reportsfeels well with no/few symptoms,normal mood,healthy diet,exercises on a regular basis,good physical condition,healthy weight,does not use tobacco products,no alcohol/does not consume alcohol in excess,normal sleep, anduses seatbelts. For sexual/gu, patient reportsno known exposure to std; safe sex practicesandno std lesions/symptoms. 25y/o M here for annual examination. He is requesting to review labs from 04/14/2025.CMP: WNLVitamin D: 41Vitamin B12: 315CBC: WNL% Saturation: 67TSH: WNL Denies chest pain, shortness of breath, abdominal pain, lower extremity swelling, fever, or further symptoms or concerns. Tanisha Novak, HYACINTH [address], [place], [address], [facility] 05/13/2025 18:36:47
--- OUTSIDE RECORDS SUMMARY | 2025-10-03 15:53 | XMS_ITS | Clinical Summary ---
Author Organization [facility] Address [address] [place] [address] Care Team Providers Care Political Consultant Name Role Phone None Reported, Pcp Primary Care Provider Unavail able Source Comments Patient records contain information from all sites at [facility]. For routine questions regarding patient records, call [phone] during business hours, M-F 8:00 AM - 5:00 PM Central Time. Record requests for emergency care only can be directed to [phone] at any time.[facility] Allergies No known active allergies Medications * This document contains information received from the source organization and may not represent a complete record from that organization. lisdexamfetamine (Vyvanse) 30 mg capsule Take 30 mg by mouth as needed (for ADHD to study.). 09/06/2024 Active methylphenidate HCl (Ritalin) 10 mg tablet Take 10 mg by mouth as needed (for ADHD to study.). 08/07/2024 Active Social History Tobacco Use Types Packs/Day Years Used Date Smoking Tobacco: Never Passive Smoke Exposure: Past Smokeless Tobacco: Never Tobacco Cessation:Counseling Given: Not Answered Comments:Hardly Ever Passive Exposure Comments:Grandparents [facility] Utilities Answer Date Recorded In the past 12 months has [employer], gas, oil, or water company threatened to shut off services in your home? No 09/07/2024 Hunger Vital Sign Answer Date Recorded Within the past 12 months, y ou worried that your food would run out before you got the money to buy more. Never true 09/07/20 24 Within the past 12 months, t he food you bought just didn't last and you didn't have money to get more. Never true 09/07/2024 PRAPARE - Transportation Answer Date Re corded In the past 12 months, has l ack of transportation kept you from medical appointments or from getting medications? Yes 08/13 In the past 12 months, has l ack of transportation kept you from meetings, work, or from getting things needed for daily living? No 09/07/2024 Depression Answer Date Recor ded PHQ-9 Total Score (max 27) 4 12/03 Housing Stability Answer Date Recorded What is your living situation today? I have a [facility] place to live 09/07/2024 Sex and Gender Information Value Date Recorded Sex Assigned at Male 09/07/2024 12:24 AM CDT Legal Sex Male 9:23 AM CDT Gender Identity Male 09/07/2024 12:24 AM CDT Sexual Orientation Straight 09/07/2024 12 :24 AM CDT Last Filed Vital Signs Vital Sign Reading Time Taken Comments Blood Pressure 135/77 12/03/2024 2:36 PM FIGURE CLERK Pulse 76 12/03/2024 2:36 PM FIGURE CLERK Temperature - - Respiratory Rate - - Oxygen Saturation - - Inhaled Oxygen Concentration - - Weight 80.1 kg (176 lb 9.4 oz) 12/03/2024 2:36 P M FIGURE CLERK Height 187.4 cm (6' 1.78) 12/03/2024 2:36 PM CS T Body Mass Index 22.81 12/03/2024 2:36 PM FIGURE CLERK Plan of Treatment Health Maintenance Due Date Last Done Comments HIV Screening 2002 Hepatitis C Screening 2002 HPV Vaccines (3 - Male 3-dose series) 02/01/2023 11/09/2022, 02/11/2019 DTaP,Tdap,and Td Vaccines (7 - Td or Tdap) 05/01/2024 05/01/2014, 05/14/2007, 11/17/2003, Additional history exists COVID-19 Vaccine ( - season) 2025 08/14/2024, 03/27/2021, 03/05/2021 Influenza Vaccine (#1) 2025 10/10/2022 Pneumococcal vaccine (0-49 years) Aged Out 2002, 2002, 2002 No longer eligible based on patient's age to complete this topic Hepatitis B Vaccines Completed 11/17/2003, 2002, 2002 IPV Vaccines Completed 06/19/2008, 04/2006, 11/17/2003, Additional history exists Depression Screening (Annual PHQ-2) Completed 12/03/2024 Insurance [facility] Care Teams Political Consultant Relationship Specialty Start Date End Date None Reported, Pcp PCP - General 09/19/24
--- NOTE | 2025-10-03 16:15 | ED_ITS ---
HPI - General Adult General Chief complaint: Cough Stated complaint: Cough Fever, Ear Pain Time Seen by Provider: 10/03/25 15:42 History of Present Illness HPI narrative: Patient is a pleasant 25 white male from [facility] attending college here in [place] who has had productive cough for the last 4-5 days. He has had history of bronchitis in the past, no other chronic lung disease. He has got some chronic diarrhea issues as well as ADHD for which she takes as needed medicine methylphenidate but he is not on that now. He plans on traveling to [place] in the next few days and is concerned that he may be sick there and need treatment. He has had a productive cough of some greenish material. He has not been short of breath, no rigors no chills. No exposure to COVID he apparently had a negative COVID test recently, and his flu test was negative as well. Related Data Previous Rx's ?Medication ?Instructions ?Recorded lisdexamfetamine 30 mg capsule 30 mg PO QDAY #30 caps 10/16/24 (Vyvanse) methylphenidate HCl 10 mg tablet 15 mg (1.5 x 10 mg) P O QAM #45 tabs 10/16/24 Allergies Allergy/AdvReac Type Severity Reaction Status Date / Time cat dander Allergy Unknown Verified 10/03/25 15:56 Review of Systems Status of ROS: Reports: 6 or more systems reviewed and unremarkable except as noted in History and below [facility] Medical History Concussion ?S06.0XAA - Concussion with loss of consciousness status unknown, initial encounter (ICD-10) Surgical History No significant past surgical history Family History Grandmother Breast cancer, Onset Age: 70 Social History What is your current living situation?: I presently have a place to live Problems where you live: no known problems In the past 12 months, utilities in danger of being shut off: no In past 12 months, lack of transportation kept you from medical appts, meetings, work, or getting things needed for daily living: no In the past 12 mos, have been you worried that your food would run out before you had money to buy more?: never true In the past 12 mos, the food you bought just didn't last and you didn't have money to buy more?: never true Smoking Status: Current some day smoker Second hand tobacco smoke exposure: No How often do you have a drink containing alcohol: monthly or less AUDIT-C Alcohol total score: 1 Non-prescribed substance use: denies use How often does anyone, including family, friends and others, physically hurt you : never How often does anyone, including family, friends and others, insult or talk down to you: never How often does anyone, including family, friends and others, threaten you with harm: never How often does anyone, including family, friends and others, scream or curse at you: never Exam Narrative: Exam Narrative: Objective: Vital signs are within normal limits O2 sat is excellent, afebrile Alert or x3 pleasant young man HEENT is unremarkable TMs show some cerumen in the ear canals but no obvious otitis media Mouth clear Neck is supple Lungs are clear no obvious rales or wheezing Pulses regular Extremities are no edema Neurologic nonfocal with no peripheral perfusion difficulty Const: Vital Signs, click to edit/add: Vital Signs - 24 hr 10/03/25 15:53 Temperature 98.4 F Pulse Rate [Right Pulse Oximeter] 86 Respiratory Rate 18 Blood Pressure [Ri ght Upper Arm] 129/78 Pulse Oximetry 97 Oxygen Delivery Me thod Room Air Course Vital Signs Vital signs: Initial Vital Signs Temperature 98.4 F 10/03/25 15:53 Temperature Source Temporal Artery Scan 10/03/25 15:53 Pulse Rate 86 10/03/25 15:53 Pulse Rhythm Regular 10/03/25 15:53 Pulse Strength 3+ Normal 10/03/25 15:53 Respiratory Rate 18 10/03/25 15:53 Blood Pressure 129/78 10/03/25 15:53 Blood Pressure Mean 95 10/03/25 15:53 Blood Pressure Position Sitting 10/03/25 15:53 Pulse Oximetry 97 10/03/25 15:53 Oxygen Delivery Method Room Air 10/03/25 15:53 Vital Signs Temperature 98.4 F 10/03/25 15:53 Pulse Rate 86 10/03/25 15:53 Respiratory Rate 18 10/03/25 15:53 Blood Pressure 129/78 10/03/25 15:53 Pulse Oximetry 97 10/03/25 15:53 Oxygen Delivery Method Room Air 10/03/25 15:53 Temperature 98.4 F 10/03/25 15:53 Pulse Rate 86 10/03/25 15:53 Respiratory Rate 18 10/03/25 15:53 Blood Pressure 129/78 10/03/25 15:53 Pulse Oximetry 97 10/03/25 15:53 Oxygen Delivery Method Room Air 10/03/25 15:53 Medical Decision Making MDM Narrative Medical decision making narrative: 25-year-old male with likely bronchitis, negative COVID a negative flu by history. At this point I think it be reasonable to given he is going to travel to cover him with an antibiotic will given doxycycline 100 mg b.i.d. x7 days. Recommend good fluid intake, Tylenol as needed. He was comfortable this assessment plan will follow up as needed. Again he has no allergies to medications. Discharge Plan Discharge Clinical Impression: Bronchitis Patient Disposition: Home, Self-Care Condition: Stable Additional Instructions: Light activity, fluids, antibiotic as prescribed, follow up as needed. Activity Level: No Restrictions Discharge Diet: Regular Prescriptions: No Action lisdexamfetamine [Vyvanse] 30 mg capsule 30 mg PO QDAY Qty: 30 0RF methylphenidate HCl 10 mg tablet 15 mg PO QAM Qty: 45 0RF Rx Instructions: Use in addition to Vyvanse in early afternoon or evening as needed for studying. Follow Up/Referrals: Vazquez Anderson MD [Primary Care Provider, Family Practice] Stand Alone Forms: [employer] Info Instructions
== END 2025-10-03 16:45 | disposition home or self-care (01) ==
LOC: ED 16:24
PROVIDERS: Emergency Provider Family Medicine; PCP Family Medicine
DX: J40 Bronchitis, not specified as acute or chronic (principal); F17.210 Nicotine dependence, cigarettes, uncomplicated
CPT/HCPCS: 99283